=== PATIENT | male | born 1935 | race Caucasian/White ===

== ENCOUNTER 2017-09-16 13:09 | Emergency (ER) | payer MEDICARE, OTHER ==
[2017-09-16] MEDS ORDERED: Lidocaine 1% 30 ML SDV INJECT ONE (13:22)
[2017-09-16] MEDS ORDERED: Bacitracin Oint 1 GM U/D Packet TOP ONE (13:22)
--- NOTE | 2017-09-16 14:08 | EDM.PDOC ---
Scribed by Shawnee Qureshi 09/16/17 1407 for Kuldip Jean MD ED HPI GENERAL MEDICAL PROBLEM - General Chief Complaint: Laceration Stated Complaint: [id number] FELL AND CUT FINGER Time Seen by Provider: 09/16/17 13:35 Source of Information: Reports: Patient, RN, RN Notes Reviewed History Limitations: Reports: No Limitations - History of Present Illness INITIAL COMMENTS - FREE TEXT/NARRATIVE: Pt presents to ER from home by POV with c/o of laceration to left 5th finger and superficial abrasions to left shoulder and B/L knees. Denies head injury, neck pain, or LOC. Last tetanus vacc. was 3 yrs ago. Onset: Today - Related Data Allergies Allergy/AdvReac Type Severity Reaction Status Date / Time Sulfa (Sulfonamide Allergy Nausea Verified 09/16/17 13:22 Antibiotics) Home Meds: Home Meds . [Unable to Verify Home Med List] 09/16/17 [History] Past Medical History Cardiovascular History: Reports: Afib, Pacemaker Social & Family History - Tobacco Use Smoking Status *Q: Never Smoker - Alcohol Use Days Per Week of Alcohol Use: 7 Number of Drinks Per Day: 1 Total Drinks Per Week: 7 - Recreational Drug Use Recreational Drug Use: No - Living Situation & Occupation Living situation: Reports: , with Spouse Occupation: Retired ED ROS GENERAL - Review of Systems Review Of Systems: ROS reveals no pertinent complaints other than HPI. ED EXAM, SKIN/RASH Exam: See Below Exam Limited By: No Limitations General Appearance: Alert, WD/WN, No Apparent Distress Eye Exam: Bilateral Eye: Normal Inspection Nose: Normal Inspection Throat/Mouth: Normal Inspection, Normal Voice, No Airway Compromise Head: Atraumatic, Normocephalic Neck: Normal Inspection Respiratory/Chest: No Respiratory Distress Extremities: Normal Range of Motion, Normal Capillary Refill Neurological: Alert, Oriented, Normal Gait, No Motor/Sensory Deficits Psychiatric: Normal Mood Skin: Wound/Incision (1.3cm linear lac. to distal volar left 5th finger, no FB, no active bleeding) ED SKIN PROCEDURES - Laceration/Wound Repair Left Distal Finger Lac/Wound length In cm: 1.3 (volar pad of left 5th distal finger) Appearance: Subcutaneous, Linear, Clean Distal NVT: Neuro & Vascular Intact, No Tendon Injury Anesthetic Type: Local Local Anesthesia - Lidocaine (Xylocaine): 1% Plain Local Anesthetic Volume: 3cc Skin Prep: Chlorhexidine (Hibiciens), Saline Saline Irrigation (cc's): 500 Exploration/Debridement/Repair: Wound Explored, In a Bloodless Field, Explored to Base, Minimal Debridement, Minimally Undermined Closed with: Sutures Suture Size: 4-0 # of Sutures: 5 Suture Type: Nylon, Interrupted Drain Placement: No Sterile Dressing Applied: Nurse Tetanus Status Addressed: Yes Complications: No Course - Vital Signs Last Recorded V/S: Last Vital Signs Temp 37.1 C 09/16/17 13:36 Pulse 66 09/16/17 13:36 Resp 16 09/16/17 13:36 BP 154/60 H 09/16/17 13:36 Pulse Ox 97 09/16/17 13:36 - Orders/Labs/Meds Meds: Medications Discontinued Medications Generic Name Dose Route Start Last Admin Trade Name Julio Cesarq PRN Reason Stop Dose Admin Bacitracin 1 dose 09/16/17 13:22 09/16/17 13:38 Bacitracin Oint 1 Gm TOP 09/16/17 13:23 1 dose ONETIME ONE Administration Lidocaine HCl 30 ml 09/16/17 13:22 09/16/17 13:38 Xylocaine-Mpf 1% INJECT 09/16/17 13:23 30 ml ONETIME ONE Administration Departure - Departure Time of Disposition: 14:03 Disposition: Home, Self-Care 01 Condition: Good Clinical Impression: Abrasions of multiple sites Laceration of left little finger Qualifiers: Encounter type: initial encounter Damage to nail status: without damage Foreign body presence: without foreign body Qualified Code(s): S61.217A - Laceration without foreign body of left little finger without damage to nail, initial encounter Fall as cause of accidental injury at home as place of occurrence Qualifiers: Encounter type: initial encounter Qualified Code(s): W19.XXXA - Unspecified fall, initial encounter; Y92.009 - Unspecified place in unspecified non- institutional (private) residence as the place of occurrence of the external cause - Discharge Information Instructions: Laceration Care, Adult Forms: ED Department Discharge Additional Instructions: Follow up in clinic in 7 to 10 days for suture removal. I have read and agree with the documentation that has been completed regarding this visit. By signing this record, I attest that the documentation was completed in my physical presence and is an accurate record of the encounter.
== END 2017-09-16 14:16 | disposition home or self-care (01) ==
LOC: DL.ED 13:09
DX: S61.217A Laceration without foreign body of left little finger without damage to nail, initial encounter (principal); Z88.2 Allergy status to sulfonamides; W01.118A Fall on same level from slipping, tripping and stumbling with subsequent striking against other sharp object, initial encounter
CPT/HCPCS: 12001; 99283